=== PATIENT | male | born 1995 | race Hispanic/Latino ===

== ENCOUNTER 2018-03-31 22:00 | Emergency (ER) | payer SELFPAY | END 2018-03-31 22:18 | disposition left against medical advice (07) | LOC: EDH 22:00 | DX: Z02.89 Encounter for other administrative examinations (principal) ==

== ENCOUNTER 2018-04-01 01:26 | Emergency (ER) | payer SELFPAY ==
[2018-04-01 03:48] LABS: BASOPHILS % (AUTO) 0.7 % (0.0-5.0); EOSINOPHILS % (AUTO) 2.8 % (0.0-8.0); HEMATOCRIT 45.7 % (42-54); LYMPHOCYTES % (AUTO) 41.2 % (21.0-51.0); MEAN CORPUSCULAR HEMOGLOBIN 32.1 pg (27.0-33.0); MEAN CORPUSCULAR HGB CONC 34.8 g/dL (32.0-36.0); MEAN CORPUSCULAR VOLUME 92.2 fL (79-99); MONOCYTES % (AUTO) 9.1 % (3.0-13.0); NEUTROPHILS % (AUTO) 46.2 % (40.0-77.0); NUCLEATED RED BLOOD CELLS 0.1 % (0.0-0.19); PLATELET COUNT (AUTO) 181 K/uL (130-400); RED BLOOD CELL COUNT(AUTO) 4.96 MIL/uL (4.50-6.20); RED CELL DISTRIBUTION WIDTH 13.4 % (11.0-15.5); WHITE BLOOD COUNT (AUTO) 8.5 K/uL (4.8-10.8)
[2018-04-01 03:54] LABS: CREATININE 0.9 mg/dL (0.5-1.5); POTASSIUM 3.9 mmol/L (3.5-5.1)
[2018-04-01 03:58] LABS: ALBUMIN 3.8 g/dL (3.5-5.0); BILIRUBIN,TOTAL 0.7 mg/dL (0.2-1.0); TOTAL PROTEIN, SERUM 7.8 g/dL (6.0-8.3)
[2018-04-01 05:29] LABS: APPEARANCE,URINE Clear (CLEAR); BILIRUBIN,URINE Negative (NEGATIVE); COLOR,URINE Yellow (YELLOW); GLUCOSE, URINE (UA) Negative (NEGATIVE); KETONES,URINE Negative (NEGATIVE); LEUKOCYTE ESTERASE ,URINE Negative (NEGATIVE); NITRATE,URINE Negative (NEGATIVE); OCCULT BLOOD,URINE Negative (NEGATIVE); PH,URINE 5.5 (5.0-8.0); PROTEIN,URINE Negative (NEGATIVE)
== END 2018-04-01 05:31 | disposition home or self-care (01) ==
LOC: EDH 01:26
DX: S32.008A Other fracture of unspecified lumbar vertebra, initial encounter for closed fracture (principal); Z72.0 Tobacco use; W17.89XA Other fall from one level to another, initial encounter; Y93.89 Activity, other specified; Y92.69 Other specified industrial and construction area as the place of occurrence of the external cause; Y99.8 Other external cause status
CPT/HCPCS: 36415; 72100; 72128; 72131; 80053; 81003; 83690; 85025

== ENCOUNTER 2018-04-01 17:37 | Emergency (ER) | payer SELFPAY | END 2018-04-01 17:59 | disposition home or self-care (01) | LOC: EDH 17:37 | DX: G89.29 Other chronic pain (principal); M54.5 Low back pain; Z72.0 Tobacco use ==

== ENCOUNTER 2019-01-08 22:28 | Emergency (ER) | payer SELFPAY | END 2019-01-08 22:53 | LOC: EDH 22:28 | DX: Z02.83 Encounter for blood-alcohol and blood-drug test (principal); F41.9 Anxiety disorder, unspecified; Z72.0 Tobacco use ==